=== PATIENT | female | born 1930 | race Caucasian/White ===

== ENCOUNTER 2021-03-31 19:47 | Emergency (ER) | payer BC ==
[~2021-03-31] VITALS: Ht 152.4 cm; Wt 46.7 kg
[2021-03-31 19:48] VITALS: BP_SYST 140
[2021-03-31] MEDS ORDERED: NS 500 ML IV ONE (20:15)
[2021-03-31] MEDS ORDERED: KETOROLAC TROMETHAMINE 15 MG VIAL IVP ONE (20:15)
[2021-03-31 20:23] LABS: BASOPHILS % (AUTO) 0.5 % (0.0-2.0); EOSINOPHILS % (AUTO) 0.8 % (0.0-4.0); HEMATOCRIT 38.5 % (36-48); HEMOGLOBIN 12.9 g/dL (12.0-16.0); LYMPHOCYTES # (AUTO) 0.7 K/uL (1.0-5.5); MEAN CORPUSCULAR HEMOGLOBIN 32 pg (27-31); MEAN CORPUSCULAR HGB CONC 34 % (32-36); MEAN CORPUSCULAR VOLUME 96 fL (79.0-98.0); MONOCYTES # (AUTO) 0.3 K/uL (0.0-1.0); MONOCYTES % (AUTO) 7.3 % (1.7-9.3); NEUTROPHILS # (AUTO) 3.4 K/uL (1.8-7.7); NEUTROPHILS % (AUTO) 76.4 % (40.0-70.0); PLATELET COUNT (AUTO) 127 K/uL (130-430); RED BLOOD CELL COUNT(AUTO) 4.02 MIL/uL (4.2-6.2); RED CELL DISTRIBUTION WIDTH 13.6 % (9.0-15.0); WHITE BLOOD COUNT (AUTO) 4.5 K/uL (4.8-10.8)
[2021-03-31 20:53] LABS: ANION GAP 5 (5-15); CHLORIDE 104 mmol/L (98-107); CREATININE 0.81 mg/dL (0.55-1.30); GLUCOSE 197 mg/dL (70-99); POTASSIUM 3.6 mmol/L (3.5-5.1); SODIUM SERUM 139 mmol/L (136-145); UREA NITROGEN, BLOOD 20 mg/dL (8-21)
[2021-03-31 20:59] LABS: ALANINE AMINOTRANSFERASE 38 U/L (12-78); ALBUMIN 3.4 g/dL (3.4-4.8); ASPARTATE AMINOTRANSFERASE 29 U/L (10-37); LIPASE 17 U/L (73-393); TOTAL BILIRUBIN 0.4 mg/dL (0.0-1.0)
[2021-03-31] MEDS ORDERED: METO50TA7 PO (21:23)
[2021-03-31] MEDS ORDERED: VITD2000 PO (21:23)
[2021-03-31] MEDS ORDERED: LOPE2CAP PO (21:23)
[2021-03-31] MEDS ORDERED: APIX2.5T PO (21:23)
[2021-03-31] MEDS ORDERED: SYN50 PO (21:23)
[2021-03-31] MEDS ORDERED: MEMA10TA PO (21:23)
[2021-03-31] MEDS ORDERED: ACET-73 PO (21:23)
[2021-03-31 22:27] LABS: BILIRUBIN,URINE NEGATIVE (NEGATIVE); BLOOD, URINE 1+ (NEGATIVE); COLOR,URINE YELLOW (YELLOW); GLUCOSE,URINE NEGATIVE (NEGATIVE); KETONES,URINE NEGATIVE (NEGATIVE); LEUKOCYTE ESTERASE ,URINE NEGATIVE (NEGATIVE); NITRITE, URINE POSITIVE (NEGATIVE); PH,URINE 5.5 (5.0-8.0); PROTEIN URINE NEGATIVE (NEGATIVE); UROBILINOGEN,URINE 0.2 (0.2-1.0)
[2021-03-31 22:40] LABS: CLARITY/URINE SLIGHTLY HAZY (CLEAR)
[2021-03-31] MEDS ORDERED: NITR-85 PO (22:57)
[2021-03-31 23:02] VITALS: BP_SYST 153
[2021-03-31 23:45] LABS: BACTERIA,URINE FEW /HPF (None Seen); RBC,URINE 0-3 /HPF (0-3); WBC,URINE 0-3 /HPF (0-3)
== END 2021-03-31 23:02 | disposition home or self-care (01) ==
LOC: SED 19:47
DX: N39.0 Urinary tract infection, site not specified (principal); R10.9 Unspecified abdominal pain; I10 Essential (primary) hypertension; I48.91 Unspecified atrial fibrillation; Z79.899 Other long term (current) drug therapy; Z20.822 Contact with and (suspected) exposure to COVID-19
CPT/HCPCS: 36415; 74176; 76376; 80053; 81000; 83690; 85025; 87086; 87426; 93005; 96374; 99285; J1885